=== PATIENT | female | born 1975 | race Two or more races ===

== ENCOUNTER 2025-02-05 07:50 | Day surgery (SDC) | payer MEDICAID, SELFPAY ==
[2025-02-05] VITALS (10 sets, daily range): BP systolic 122–167; BP diastolic 67–92; PULSE 73–91; RESP 10–19; TEMP 36.7–36.9; O2SAT 95–100; BMI 32.7
[2025-02-05] MEDS: MIDAZOLAM INJ 1 MG/ML VIAL 2 ML (ASD USE ONLY) 2 MG IV (09:36)
[2025-02-05] MEDS: RINGERS LACTATED 1000 ML 1,000 ML 60 ML IV (09:36)
[2025-02-05] MEDS: DiphenhydrAMINE INJ 50 MG/ML VIAL 25 MG IV (09:37)
[2025-02-05] MEDS: fentaNYL CIT INJ 50 mCg/ML AMP 2ML (ASD USE ONLY) IV (09:37)
== END 2025-02-05 10:25 | disposition home or self-care (01) ==
PROVIDERS: PCP Obstetrics & Gynecology; Referring Provider Specialist; Visit Provider Specialist
PROC: 0DBE8ZX Excision of Large Intestine, Via Natural or Artificial Opening Endoscopic, Diagnostic (ICD-10-PCS; CPT 45380; principal; 2025-02-05 09:30)
DX: Z12.11 Encounter for screening for malignant neoplasm of colon (principal); K64.9 Unspecified hemorrhoids; K57.30 Diverticulosis of large intestine without perforation or abscess without bleeding
CPT/HCPCS: 45378; 80053; 81001; 81025; 85025; 85610; 85730; J1200; J2250; J3010; J7120

== ENCOUNTER → 2025-05-22 | Outpatient (CLI) | payer MEDICAID, SELFPAY ==
--- NOTE | 2025-05-22 | XR_ITS ---
Examination: Lumbar spine, 5 views Technique: Lumbar spine AP, lateral, coned lateral lower lumbar spine, bilateral obliques 5 views Exam date and time: May 22, 2025 1203 hours INDICATIONS: Low back pain 3 months. FINDINGS: Moderate osteopenia Mild diffuse facet arthropathy. No lumbar fracture. No spondylolisthesis. Moderate degenerative disc disease L5-S1 IMPRESSION: Moderate degenerative disc disease L5-S1
== END | disposition home or self-care (01) ==
LOC: CDIM 11:45
PROVIDERS: PCP Physician Assistant; Referring Provider Physician Assistant; Visit Provider Physician Assistant
DX: M51.379 Other intervertebral disc degeneration, lumbosacral region without mention of lumbar back pain or lower extremity pain (principal)
CPT/HCPCS: 72110

== ENCOUNTER → 2025-07-22 | Outpatient (CLI) | payer MEDICAID, SELFPAY ==
--- NOTE | 2025-07-22 09:15 | XR_ITS ---
Examination: Pelvic ultrasound, transabdominal, complete Technique: Transabdominal ultrasound of the pelvis performed using grayscale imaging Date and time of exam: July 22, 2025 0915 hours INDICATIONS: Pelvic pain with perineal burning sensation beginning 4 months ago getting FINDINGS: Uterus 6.6 cm anteverted endometrial stripe 0.2 cm, no uterine mass Right ovary obscured by bowel gas Left ovary 2.3 cm arterial flow IMPRESSION: Negative for uterine mass
== END | disposition home or self-care (01) ==
LOC: CDIM 09:05
PROVIDERS: PCP Physician Assistant; Referring Provider Physician Assistant; Visit Provider Physician Assistant
DX: R10.2 Pelvic and perineal pain (principal)
CPT/HCPCS: 76856